=== PATIENT | male | born 1985 | race African-American/Black ===

== ENCOUNTER 2016-06-06 21:39 | Emergency (ER) | payer OTHER ==
[2016-06-06] MEDS ORDERED: NS 0.9% 1000 ML* 2,000 ML IV ONE (22:09)
[2016-06-06 23:22] LABS: Hematocrit 43 % (42-52); Hemoglobin 14.8 g/dl (14.0-18.0); Mean Corpuscular HGB Conc 34 g/dl (31-36); Mean Corpuscular Hemoglobin 32 pg (27-31); Mean Corpuscular Volume 94 fL (80-94); Mean Platelet Volume 9 um3 (7.4-10.4); Red Blood Count 4.63 10^6/ul (4.0-5.4); Red Cell Distribution Width 13 % (10.5-15); White Blood Count 10.7 10^3/ul (3.5-10.8)
[2016-06-06 23:39] LABS: ALT 16 U/L (7-52); Albumin 4.4 g/dL (3.2-5.2); Alkaline Phosphatase 45 U/L (34-104); BUN/Creatinine Ratio 11.5 (8-20); Blood Urea Nitrogen 11 mg/dL (6-24); C Reactive Protein 25.02 mg/L (< 5.00); CO2 Carbon Dioxide 29 mmol/L (22-32); Calcium 9.4 mg/dL (8.6-10.3); Chloride 95 mmol/L (101-111); EGFR African American 116.7 (>60); EGFR Non-African American 90.8 (>60); Glucose 147 mg/dL (70-100); Lipase < 10 U/L (11.0-82.0); Sodium 131 mmol/L (133-145); Total Protein 7.4 g/dL (6.4-8.9)
[2016-06-07] MEDS ORDERED: Ondansetron INJ* 2 MG/ML VIAL IV ONE (00:07)
[2016-06-07] MEDS ORDERED: Ketorolac INJ* 30 MG/ML 1 ML VIAL IV ONE (00:07)
[2016-06-07] MEDS ORDERED: Iohexol 300* (CONTRAST) 10 ML SDV IV ONE (00:29)
[2016-06-07] MEDS ORDERED: NS 0.9% 1000 ML* 1,000 ML IV ONE (01:08)
[2016-06-07 02:23] LABS: Urine Bilirubin Negative (Negative); Urine Glucose Negative (Negative); Urine Nitrite Negative (Negative)
[2016-06-07] MEDS ORDERED: Ondansetron ODT TAB* 4 MG PO ONE (03:35)
--- NOTE | 2016-06-07 03:50 | ED ---
konrad Tijerina Timothy, scribed for Willy Easley MD on 06/07/16 at 0100 . Abdominal Pain/Male - HPI Summary HPI Summary: Mohinder Kaufman is a 31 yo male presenting to [facility] with N/V/D and constant 8/10 RLQ abd pain since 06/06/16 morning. He states the pain has increased throughout the day. He had a normal BM this morning. He only had pineapples for lunch. He vomited at 1430, and states it was red, likely due to the cough medicine he had taken earlier. He states he vomited again after eating. He states the pain is worse with movement. He denies body aches, diarrhea, dysuria. He is in a correctional facility. He has self-medicated with tylenol 650 mg at 1910. He denies any PMHx. - History of Current Complaint Chief Complaint: EDAbdPain Stated Complaint: NAUSEA,VOMITING,DIARRHEA Time Seen by Provider: 06/07/16 00:43 Hx Obtained From: Patient Onset/Duration: Sudden Onset, Lasting Hours, Still Present Timing: Constant Severity Initially: Moderate Severity Currently: Moderate Pain Intensity: 8 Pain Scale Used: 0-10 Numeric Location: Discrete At: RLQ Radiates: No Associated Signs And Symptoms: Positive: Nausea, Vomiting, Diarrhea - Allergies/Home Medications Allergies/Adverse Reactions: Allergies Allergy/AdvReac Type Severity Reaction Status Date / Time No Known Allergies Allergy Verified 06/06/16 23:23 Home Medications: Home Medications Acetaminophen [Tylenol] 325 mg PO Q6H 06/06/16 [History Confirmed 06/06/16] PMH/Surg Hx/FS Hx/Imm Hx Endocrine/Hematology History: Denies: Hx Diabetes Cardiovascular History: Denies: Hx Hypertension History: Denies: Hx Renal Disease Infectious Disease History: No Infectious Disease History: Denies: Traveled Outside the [place] in Last 30 Days - Family History Known Family History: Positive: Hypertension, Diabetes, Other - breast ca Negative: Cardiac Disease - Social History Alcohol Use: None Substance Use Type: Reports: None Smoking Status (MU): Light Every Day Tobacco Smoker Review of Systems Constitutional: Negative Eyes: Negative ENT: Negative Positive: Palpitations Respiratory: Negative Positive: Vomiting, Diarrhea, Nausea Genitourinary: Negative Musculoskeletal: Negative Skin: Negative Neurological: Negative Psychological: Normal All Other Systems Reviewed And Are Negative: Yes Physical Exam Triage Information Reviewed: Yes Vital Signs On Initial Exam: Initial Vitals Temp Pulse Resp BP Pulse Ox 98.4 F 67 18 125/49 98 06/06/16 21:50 06/06/16 21:50 06/06/16 21:50 06/06/16 21:50 06/06/16 21:50 Vital Signs Reviewed: Yes Appearance: Positive: Well-Appearing, No Pain Distress Skin: Positive: Warm, Skin Color Reflects Adequate Perfusion, Dry Head/Face: Positive: Normal Head/Face Inspection Eyes: Positive: EOMI, CHANDLER ENT: Positive: Other - oral mucosa dry Neck: Positive: Supple, Nontender Respiratory/Lung Sounds: Positive: Clear to Auscultation, Breath Sounds Present Cardiovascular: Positive: RRR Abdomen Description: Positive: Soft. Negative: Nontender - Rright mid abdomen tenderness, Other: - rebound Bowel Sounds: Positive: Present Musculoskeletal: Positive: Normal, Strength/ROM Intact Neurological: Positive: Normal, Sensory/Motor Intact, Alert, Oriented to Person Place, Time Psychiatric: Positive: Affect/Mood Appropriate - Lita Coma Scale Coma Scale Total: 15 Diagnostics - Vital Signs Vital Signs Temp Pulse Resp BP Pulse Ox 06/06/16 21:50 98.4 F 67 18 125/49 98 - Laboratory Lab Results: Lab Results 06/06/16 06/06/16 06/06/16 Range/Units 20:40 23:16 23:16 WBC 10.7 (3.5-10.8) 10^3/ul RBC 4.63 (4.0-5.4) 10^6/ul Hgb 14.8 (14.0-18.0) g/dl Hct 43 (42-52) % MCV 94 (80-94) fL MCH 32 H (27-31) pg MCHC 34 (31-36) g/dl RDW 13 (10.5-15) % Plt Count 146 L (150-450) 10^3/ul MPV 9 (7.4-10.4) um3 Neut % (Auto) 88.0 H (38-83) % Lymph % (Auto) 8.4 L (25-47) % Dubois % (Auto) 3.2 (1-9) % Eos % (Auto) 0.1 (0-6) % Baso % (Auto) 0.3 (0-2) % Absolute Neuts (auto) 9.4 H (1.5-7.7) 10^3/ul Absolute Lymphs (auto) 0.9 L (1.0-4.8) 10^3/ul Absolute Monos (auto) 0.3 (0-0.8) 10^3/ul Absolute Eos (auto) 0 (0-0.6) 10^3/ul Absolute Basos (auto) 0 (0-0.2) 10^3/ul Absolute Nucleated RBC 0 10^3/ul Nucleated RBC % 0 INR (Anticoag Therapy) 1.00 (0.89-1.11) APTT 25.4 L (26.0-36.3) seconds Sodium (133-145) mmol/L Potassium Chloride (101-111) mmol/L Carbon Dioxide (22-32) mmol/L Anion Gap BUN (6-24) mg/dL Creatinine (0.67-1.17) mg/dL Est GFR ( Amer) (>60) Est GFR (Non-Af Amer) (>60) BUN/Creatinine Ratio (8-20) Glucose (70-100) mg/dL Lactic Acid (0.5-2.0) mmol/L Calcium (8.6-10.3) mg/dL Total Bilirubin (0.2-1.0) mg/dL AST ALT (7-52) U/L Alkaline Phosphatase (34-104) U/L C-Reactive Protein (< 5.00) mg/L Total Protein (6.4-8.9) g/dL Albumin (3.2-5.2) g/dL Globulin (2-4) g/dL Albumin/Globulin Ratio (1-3) Lipase (11.0-82.0) U/L Urine Color Urine Appearance Urine pH (5-9) Ur Specific Alexander (1.010-1.030) Urine Protein (Negative) Urine Ketones (Negative) Urine Blood (Negative) Urine Nitrate (Negative) Urine Bilirubin (Negative) Urine Urobilinogen (Negative) Ur Leukocyte Esterase (Negative) Urine WBC (Auto) (Absent) Urine RBC (Auto) (Absent) Ur Squamous Epith Cells Present H (Absent) Urine Bacteria (Absent) Urine Yeast (Absent) Urine Glucose (Negative) Urine Ascorbic Acid * H (Negative) 06/06/16 06/06/16 Range/Units 23:16 23:16 WBC (3.5-10.8) 10^3/ul RBC (4.0-5.4) 10^6/ul Hgb (14.0-18.0) g/dl Hct (42-52) % MCV (80-94) fL MCH (27-31) pg MCHC (31-36) g/dl RDW (10.5-15) % Plt Count (150-450) 10^3/ul MPV (7.4-10.4) um3 Neut % (Auto) (38-83) % Lymph % (Auto) (25-47) % Dubois % (Auto) (1-9) % Eos % (Auto) (0-6) % Baso % (Auto) (0-2) % Absolute Neuts (auto) (1.5-7.7) 10^3/ul Absolute Lymphs (auto) (1.0-4.8) 10^3/ul Absolute Monos (auto) (0-0.8) 10^3/ul Absolute Eos (auto) (0-0.6) 10^3/ul Absolute Basos (auto) (0-0.2) 10^3/ul Absolute Nucleated RBC 10^3/ul Nucleated RBC % INR (Anticoag Therapy) (0.89-1.11) APTT (26.0-36.3) seconds Sodium 131 L (133-145) mmol/L Potassium TNP Chloride 95 L (101-111) mmol/L Carbon Dioxide 29 (22-32) mmol/L Anion Gap TNP BUN 11 (6-24) mg/dL Creatinine 0.96 (0.67-1.17) mg/dL Est GFR ( Amer) 116.7 (>60) Est GFR (Non-Af Amer) 90.8 (>60) BUN/Creatinine Ratio 11.5 (8-20) Glucose 147 H (70-100) mg/dL Lactic Acid 1.3 (0.5-2.0) mmol/L Calcium 9.4 (8.6-10.3) mg/dL Total Bilirubin 0.50 (0.2-1.0) mg/dL AST TNP ALT 16 (7-52) U/L Alkaline Phosphatase 45 (34-104) U/L C-Reactive Protein 25.02 H (< 5.00) mg/L Total Protein 7.4 (6.4-8.9) g/dL Albumin 4.4 (3.2-5.2) g/dL Globulin 3.0 (2-4) g/dL Albumin/Globulin Ratio 1.5 (1-3) Lipase < 10 L (11.0-82.0) U/L Urine Color Urine Appearance Urine pH (5-9) Ur Specific Alexander (1.010-1.030) Urine Protein (Negative) Urine Ketones (Negative) Urine Blood (Negative) Urine Nitrate (Negative) Urine Bilirubin (Negative) Urine Urobilinogen (Negative) Ur Leukocyte Esterase (Negative) Urine WBC (Auto) (Absent) Urine RBC (Auto) (Absent) Ur Squamous Epith Cells (Absent) Urine Bacteria (Absent) Urine Yeast (Absent) Urine Glucose (Negative) Urine Ascorbic Acid (Negative) Result Diagrams: 06/06/16 23:16 06/06/16 23:16 Lab Statement: Any lab studies that have been ordered have been reviewed, and results considered in the medical decision making process. - CT A/P CT Interpretation: No Acute Changes - Impression: Nonvisualization of the appendix with suboptimal opacification of the RLQ by oral contrast. Appendicitis cannot be excluded on this exam. Consider delayed imaging in 2-3 hours to allow for complete oral contrast opacification of the RLQ. No localized findings for acute pathology. CT Interpretation Completed By: Radiologist - imaging [facility] A/P 2 CT Interpretation: No Acute Changes - Impression: no findings for appendicitis CT Interpretation Completed By: Radiologist - [facility] Re-Evaluation - Re-Evaluation First Eval Re-Evaluation Time: 02:40 Change: Unchanged Comment: Pt informed of results of CT A/P. Pt is soap drier tender on right abd, CT A /P will be repeated. Second Eval Re-Evaluation Time: 03:23 Change: Unchanged Comment: Pt was informed of negative results of CT A/P. Abdominal Pain Fem Course/Dx - Course Assessment/Plan: Mohinder Kaufman is a 31 yo male presenting to [facility] with N/V/D and RT abd pain since 06/06/[address] A/P showed. After clinical examination, review of his inconclusive CT A/P, review of his second, negative, CT A/P, and review of his lab work, he will be discharged with appropriate instructions. SECOND CT ABD HAD GOOD CONTRAST IN RLQ; NO APPENDIX OR INFLAMMATORY PROCESS IDENTIFIED. PAIN DECREASED IN ED. WORST PAIN MID RT ABD. NO FEVER. DISCUSSED RESULTS WITH PATIENT. PATIENT TO GET RECHECK IF RT ABD PERSISTS OR WORSENENS OR IF DEVELOPS A FEVER. DISCHARGE HOME STABLE. - Diagnoses Provider Diagnoses: Abdominal pain, Nausea & vomiting, Dehydration Discharge - Discharge Plan Condition: Stable Disposition: HOME Patient Education Materials: Dehydration (ED), Acute Nausea and Vomiting (ED), Abdominal Pain (ED) Referrals: Johanna GASTELUM,Lenny Singh [Primary Care Provider] - Additional Instructions: FOLLOW UP WITH YOUR DOCTOR. RETURN TO THE EMERGENCY DEPARTMENT FOR ANY WORSENING OF YOUR CONDITION; PAIN, FEVER, YOU FEEL ILL OR QUESTIONS OR CONCERNS. The documentation as recorded by the konrad kwan Timothy accurately reflects the service I personally performed and the decisions made by me, Willy Easley MD.
[2016-06-07 04:00] VITALS: BP 123/60
--- NOTE | 2016-06-07 07:54 | RAD ---
INDICATION: 31-year-old with right lower quadrant pain COMPARISON: None TECHNIQUE: Axial source images were obtained from the hemidiaphragms to the symphysis pubis following administration of oral and intravenous contrast. 105 mL Omnipaque 300 was utilized. Coronal and sagittal reconstructed images were acquired. Additional delayed imaging of the abdomen and pelvis was obtained approximately 2 1/2 hours following the original scan to allow for better contrast opacification of the colon. Lung bases: The lung bases are clear. Liver: The liver is normal in size. There is a 4 cm lesion in the posterior right hepatic lobe demonstrating nodular peripheral enhancement and partial centripetal filling. This is most consistent with hemangioma. There is no ductal dilatation. Gallbladder: There are no calcified gallstones. There is no evidence of wall thickening or pericholecystic fluid. Spleen: The spleen is normal in size. There are no masses. Pancreas: There is no focal pancreatic mass or ductal dilatation. Adrenal glands: There is no evidence of adrenal mass. Kidneys: The kidneys are normal in size and position. There are prompt nephrograms and there is prompt excretion bilaterally. There are no renal parenchymal masses. There is no evidence of nephrolithiasis. Adenopathy: There is no evidence of adenopathy by size criteria. Fluid collections: There are no free or localized fluid collections. Vessels:There are no significant atherosclerotic changes involving the aorta. There is no focal aneurysm. The iliac vessels are normal in caliber. The IVC appears normal. GI tract: There are no acute CT bowel findings. There is no obstruction. The stomach and small bowel appear normal. The lower GI tract is normal. The cecum, ileocecal valve, and terminal ileum appear normal. The appendix is not visualized. There is no periappendiceal inflammatory change. Delayed image likewise fails to confirm the appendix. If acute appendicitis remains in the differential, the patient should be referred to a surgeon. Pelvic organs: The prostate and seminal vesicles appear normal Bladder: There are no bladder masses. Abdominal and pelvic soft tissues: The extraperitoneal abdominal and pelvic soft tissues appear normal.. Osseous structures: There are no acute osseous findings. Other: None IMPRESSION: NO ACUTE CT FINDINGS. NO MASS OR INFLAMMATORY CHANGE. NONVISUALIZATION OF THE APPENDIX. SUGGEST CLINICAL MANAGEMENT OF ACUTE APPENDICITIS WITH SURGICAL REFERRAL INDICATED
== END 2016-06-07 03:59 | disposition home or self-care (01) ==
LOC: ED 21:39
DX: R10.31 Right lower quadrant pain (principal); E86.0 Dehydration; R11.2 Nausea with vomiting, unspecified; R19.7 Diarrhea, unspecified; F17.210 Nicotine dependence, cigarettes, uncomplicated
CPT/HCPCS: 36415; 74177; 80053; 81003; 81015; 83605; 83690; 85025; 85610; 85730; 86140; 87086; 96374; 96375; 99284; A9270-GY; J1885; J2405; Q9967

== ENCOUNTER 2016-06-07 11:30 | Observation (INO) | payer OTHER ==
[2016-06-07] MEDS ORDERED: NS 0.9% 1000 ML* 1,000 ML IV ONE (12:30)
[2016-06-07] MEDS ORDERED: Ondansetron INJ* 2 MG/ML VIAL IV ONE (12:31)
[2016-06-07] MEDS ORDERED: Ketorolac INJ* 30 MG/ML 1 ML VIAL IV PUSH ONE (12:31)
[2016-06-07 13:47] LABS: Hematocrit 41 % (42-52); Hemoglobin 14.1 g/dl (14.0-18.0); Mean Corpuscular HGB Conc 34 g/dl (31-36); Mean Corpuscular Hemoglobin 32 pg (27-31); Mean Corpuscular Volume 93 fL (80-94); Mean Platelet Volume 9 um3 (7.4-10.4); Red Cell Distribution Width 13 % (10.5-15); White Blood Count 13.1 10^3/ul (3.5-10.8)
--- NOTE | 2016-06-07 14:02 | ED ---
GI/ HPI - HPI Summary HPI Summary: 31M presents with n/v and abdominal pain for a day. Pain is greatest in RLQ. He admits to anorexia. Last meal was at 7pm had some toast which vomited up. Took some zofran this morning. Had 2 CTs last night were unable to see appendix and was d/c home. Last BM was yesterday and was normal. He denies any blood in his urine or stool. He denies any dysuria. - History of Current Complaint Chief Complaint: EDAbdPain Time Seen by Provider: 06/07/16 12:26 Stated Complaint: ABD PAIN Pain Intensity: 7 - Allergy/Home Medications Allergies/Adverse Reactions: Allergies Allergy/AdvReac Type Severity Reaction Status Date / Time No Known Allergies Allergy Verified 06/06/16 23:23 PMH/Surg Hx/FS Hx/Imm Hx Endocrine/Hematology History: Denies: Hx Diabetes Cardiovascular History: Denies: Hx Hypertension History: Denies: Hx Renal Disease - Immunization History Date of Tetanus Vaccine: UTD Date of Influenza Vaccine: none Infectious Disease History: No Infectious Disease History: Denies: Traveled Outside the [place] in Last 30 Days - Family History Known Family History: Positive: Hypertension, Diabetes, Other - breast ca Negative: Cardiac Disease - Social History Alcohol Use: None Substance Use Type: Reports: None Smoking Status (MU): Light Every Day Tobacco Smoker Review of Systems Negative: Fever Negative: Chest Pain Negative: Shortness Of Breath Positive: Abdominal Pain - RLQ, Vomiting, Nausea. Negative: Diarrhea All Other Systems Reviewed And Are Negative: Yes Physical Exam Triage Information Reviewed: Yes Vital Signs On Initial Exam: Initial Vitals Temp Pulse Resp BP Pulse Ox 98.7 F 55 16 135/76 100 06/07/16 11:33 06/07/16 11:33 06/07/16 11:33 06/07/16 11:33 06/07/16 11:33 Vital Signs Reviewed: Yes Appearance: Positive: Pain Distress Skin: Positive: Warm, Dry Head/Face: Positive: Normal Head/Face Inspection Eyes: Positive: Normal, Conjunctiva Clear ENT: Positive: Normal ENT inspection, Pharynx normal Respiratory/Lung Sounds: Positive: Clear to Auscultation, Breath Sounds Present Cardiovascular: Positive: Normal, RRR Abdomen Description: Positive: Soft, Other: - moderate tenderness in RLQ, pos rovsings, mildly diffusely tender across abdomen with greatest in RLQ Bowel Sounds: Positive: Present - Lita Coma Scale Coma Scale Total: 15 Diagnostics - Vital Signs Vital Signs Temp Pulse Resp BP Pulse Ox 06/07/16 11:33 98.7 F 55 16 135/76 100 - Laboratory Lab Results: Lab Results 06/07/16 Range/Units 13:25 WBC 13.1 H (3.5-10.8) 10^3/ul RBC 4.40 (4.0-5.4) 10^6/ul Hgb 14.1 (14.0-18.0) g/dl Hct 41 L (42-52) % MCV 93 (80-94) fL MCH 32 H (27-31) pg MCHC 34 (31-36) g/dl RDW 13 (10.5-15) % Plt Count 143 L (150-450) 10^3/ul MPV 9 (7.4-10.4) um3 Neut % (Auto) 80.6 (38-83) % Lymph % (Auto) 12.1 L (25-47) % Lincoln % (Auto) 7.0 (1-9) % Eos % (Auto) 0 (0-6) % Baso % (Auto) 0.3 (0-2) % Absolute Neuts (auto) 10.5 H (1.5-7.7) 10^3/ul Absolute Lymphs (auto) 1.6 (1.0-4.8) 10^3/ul Absolute Monos (auto) 0.9 H (0-0.8) 10^3/ul Absolute Eos (auto) 0 (0-0.6) 10^3/ul Absolute Basos (auto) 0 (0-0.2) 10^3/ul Absolute Nucleated RBC 0.01 10^3/ul Nucleated RBC % 0.1 Result Diagrams: 06/07/16 13:25 06/07/16 13:25 Lab Statement: Any lab studies that have been ordered have been reviewed, and results considered in the medical decision making process. Re-Evaluation - Re-Evaluation First Eval Re-Evaluation Time: 14:04 Change: Improved Comment: pain improved, mild tenderness in RLQ GIGU Course/Dx - Course Course Of Treatment: 31M presents with worsening abdominal pain in RLQ. Was here this morning and had two CT which unable to see appedix. on exam has generalized tenderness that is greatest in RLQ. pos rovings. got labs and elevated CRP and WBC. called dr cates and will evalulate. dr cates to take to OR to remove appendix - Diagnoses Differential Diagnoses - Male: Appendicitis, Gastroenteritis (Bacterial), Gastroenteritis (Viral) Provider Diagnoses: Acute appendicitis Discharge - Discharge Plan Condition: Stable Disposition: ADMITTED TO [facility]
[2016-06-07 14:05] LABS: ALT 11 U/L (7-52); AST 15 U/L (13-39); Alkaline Phosphatase 42 U/L (34-104); Anion Gap 5 mmol/L (2-11); BUN/Creatinine Ratio 9.1 (8-20); Blood Urea Nitrogen 9 mg/dL (6-24); CO2 Carbon Dioxide 29 mmol/L (22-32); Calcium 8.9 mg/dL (8.6-10.3); Chloride 101 mmol/L (101-111); EGFR African American 112.7 (>60); EGFR Non-African American 87.6 (>60); Globulin 2.7 g/dL (2-4); Glucose 111 mg/dL (70-100); Lipase < 10 U/L (11.0-82.0); Potassium 4.2 mmol/L (3.5-5.0); Sodium 135 mmol/L (133-145); Total Protein 6.7 g/dL (6.4-8.9)
[2016-06-07] MEDS ORDERED: Acetaminophen TAB* 325 MG PO ONE (14:16)
[2016-06-07] MEDS ORDERED: Famotidine IV* 10 MG/ML 2 ML (20 mg) IV ONE (16:31)
[2016-06-07] MEDS ORDERED: Buffered Lidocaine 1% SYRIN* 3 ML/SYR SYRINGE INTRADERM ONE (16:31)
[2016-06-07] MEDS ORDERED: Dexamethasone IV* 4 MG/ML 1 ML (4 MG) IV SLOW PU ONE (16:31)
[2016-06-07] MEDS ORDERED: ceFOXitin 2 GM IVPREMIX* 2 GM/50 ML BAG ONE (16:56)
[2016-06-07] MEDS ORDERED: Bupivacaine 0.25% EPI 200,000* 30 ML SDV ONE (18:28)
[2016-06-07] MEDS ORDERED: Midazolam* 1 MG/ML 2 ML VIAL (2 MG) ONE (18:35)
[2016-06-07] MEDS ORDERED: fentaNYL* 50 MCG/ML 2 ML VIAL (100 MCG VIAL) ONE ×3 (18:35→19:51)
[2016-06-07] MEDS ORDERED: Rocuronium* 10 MG/ML VIAL ONE (18:46)
[2016-06-07] MEDS ORDERED: Ibuprofen TAB* 600 MG PO PRN (18:48)
[2016-06-07] MEDS ORDERED: Acetaminophen TAB* 325 MG PO PRN (18:48)
[2016-06-07] MEDS ORDERED: HYDROmorphone* 1 MG/ML 1 ML SYR IV PRN ×2 (18:48→19:37)
[2016-06-07] MEDS ORDERED: Ondansetron INJ* 2 MG/ML VIAL IV PRN (18:48)
[2016-06-07] MEDS ORDERED: Succinylcholine* 20 MG/ML 10 ML VIAL ONE (19:13)
[2016-06-07] MEDS ORDERED: Ondansetron INJ* 2 MG/ML VIAL ONE (19:13)
[2016-06-07] MEDS ORDERED: Propofol* 10 MG/ML 20 ML BTL IV PUSH ONE (19:13)
[2016-06-07] MEDS ORDERED: Lidocaine 2% PF* 5 ML VIAL ONE (19:13)
[2016-06-07] MEDS ORDERED: Dexamethasone IV* 4 MG/ML 1 ML (4 MG) ONE (19:13)
[2016-06-07] MEDS ORDERED: HYDROmorphone* 1 MG/ML 1 ML SYR ONE (19:51)
[2016-06-07] MEDS: fentaNYL* 50 MCG/ML 2 ML VIAL (100 MCG VIAL) IV PRN ×3 (19:53→20:46)
[2016-06-07] MEDS: oxyCODONE/Acetamin 5/325 MG* TAB PO PRN (22:38)
--- NOTE | 2016-06-07 23:06 | HP ---
CC: Dr. Ruddy Lorenzo; [facility] HISTORY AND PHYSICAL: DATE OF ADMISSION: 06/07/16 CHIEF COMPLAINT: Abdominal pain. HISTORY OF PRESENT ILLNESS: The patient is a 31-year-old male, who is an inmate at the [facility], who comes in with about 24 hours of abdominal pain that started as what he called a stomachache and he points to the central abdomen and overtime it gradually shifted to the right lower quadrant. He was seen last night in the emergency room, had a CT scan which did not show the appendix at all, and he was then sent home but then came back this afternoon. He has had nausea, vomiting, anorexia, and continued abdominal pain, which is more intense in the right lower quadrant. He has not had any diarrhea, fever, chills. No constipation. No trauma or injury. No antecedent illness. PAST MEDICAL HISTORY: Benign. No chronic medical problems. MEDICATIONS: No regular medications. ALLERGIES: He denies medical allergies. FAMILY HISTORY: His family history reveals hypertension and diabetes. No cardiac disease. No bleeding tendencies or anesthesia reactions. SOCIAL HISTORY: He is a resident at [facility]. He is an occasional smoker. He is not using drugs or illicit substances or drinking at the facility.. REVIEW OF SYSTEMS: Multisystem review is benign. No chest pain, heart pain, or angina. No bronchitis, emphysema, or other lung disease. No diabetes, thyroid, or other endocrine. No prior GI or or biliary history. No neuromuscular or psych history. PHYSICAL EXAMINATION GENERAL: He is a well-developed, well-nourished, muscular male, consistent with stated age. VITAL SIGNS: Reveal temperature 98.7, pulse 58, O2 saturation 98%, blood pressure 146/82, respirations are 16 and unlabored. NECK: Supple without any adenopathy. LUNGS: Clear bilaterally. HEART: Regular without any abnormal sounds. ABDOMEN: Muscular, soft, tender in the right lower quadrant with slight guarding. Mild calf tenderness. Mild percussion tenderness. No Rovsing sign. He does have mild referred rebound from left to right as well as focal rebound in the right lower quadrant and no masses or hernias. EXTREMITIES: Well perfused without edema. SKIN: Warm and well perfused. He is not diaphoretic. He is not jaundiced. DIAGNOSTIC STUDIES/LAB DATA: Laboratory studies revealed white blood count of 13,000, which is elevated from 10,000 yesterday. He has a slight elevation of his CRP. His electrolytes are normal. His CT scan as noted above, it showed no evidence of appendicitis, but the appendix was not visualized, so it is a nondiagnostic study. IMPRESSION: A 31-year-old otherwise healthy male with what appears to be acute appendicitis by clinical exam. I have discussed this with him and I recommend laparoscopic appendectomy. I think the CT scan is in essence nondiagnostic and have to rely on clinical scenario and I think his clinical picture is most consistent with acute appendicitis. He understands this situation and agrees to proceed in the fashion outlined and we will proceed with laparoscopic appendectomy this evening. [id number]/[facility] #: [id number] AISSATOU
[2016-06-08] MEDS: oxyCODONE/Acetamin 5/325 MG* TAB PO PRN ×2 (05:13→10:26)
--- NOTE | 2016-06-08 07:58 | OP ---
DATE OF OPERATION: 06/07/16 - ROOM #348 DATE OF : 83 SURGEON: Ruddy Lorenzo MD FIELD SAMPLING TECHNICIAN: None. ANESTHESIOLOGIST: Gabbi Powers MD ANESTHESIA: General anesthetic, local infiltration. PRE-OP DIAGNOSIS: Appendicitis. POST-OP DIAGNOSIS: Appendicitis. OPERATIVE PROCEDURE: Laparoscopic appendectomy. DESCRIPTION OF PROCEDURE: The patient was supine on the operative table. After adequate general anesthetic, compression stockings, Yola Hugger warmer, and intravenous antibiotics; the abdomen was prepped with antiseptic; and draped in a sterile fashion. Local infiltrative anesthesia was administered. A small umbilical incision was created. Blunt port cannula was placed. Insufflation was carried out with carbon dioxide. Additional cannulae; 5 mm left lower quadrant and left mid abdomen were placed through small stab wounds under direct vision. The appendix was inflamed with suppurative changes, was adherent to the sigmoid colon, was pealed off the sigmoid and brought upward. A window was created at the base of the appendix, and the cecum was divided using a 60 mm boswell SARAI stapler, and then the meso-appendix divided using a 45 mm ferrari SARAI stapler. Appendix was placed in a retrieval bag and brought out through the umbilical site. Hemostasis was excellent. Everything was in good condition. There was still undrained collection, cannulae removed. Pneumoperitoneum allowed to escape. Umbilical fascia was closed with 0 Polysorb and skin with 5-0 Polysorb followed by Steri-Strips. He tolerated the procedure well, was awakened, and brought to recovery in good condition. There are no complications. No drains. Pathologic specimen is appendix. Sponge and instrument counts were correct. Estimated blood loss is less than 5 mL. CC: Carlos KINGSLEY* [id number]/[facility] #: [id number] [facility]
[2016-06-08 08:33] VITALS: BP 116/61
--- NOTE | 2016-06-08 09:16 | SURGPN ---
Subjective - Introduction -: [Reports feeling much better this AM. Tolerating clear liquids. Very minimal incisional pain. No N/V, fever or chills. Ready to go home. - Medications -: Active Medications Generic Name Dose Route Start Last Admin Trade Name Freq PRN Reason Stop Dose Admin Acetaminophen 650 mg 06/07/16 18:48 Tylenol Tab* PO Q4H PRN Pain Or Temperature >101 F Hydromorphone HCl 0.5 mg 06/07/16 18:48 Dilaudid Iv* IV Q1H PRN PAIN - SEVERE Lactated Ringer's 1,000 mls @ 125 mls/hr 06/07/16 19:00 06/08/16 08:25 Lactated Ringers 1000 Ml Bag* IV 125 mls/hr .per rate [place] Administration Ibuprofen 600 mg 06/07/16 18:48 Motrin Tab* PO Q8H PRN PAIN Ondansetron HCl 4 mg 06/07/16 18:48 Zofran Inj* IV Q4H PRN NAUSEA/VOMITING Oxycodone/Acetaminophen 1 tab 06/07/16 18:48 06/08/16 05:13 Percocet 5/325 Tab* PO 1 tab Q4H PRN Administration PAIN Objective - Objective -: Awake and alert, appears comfortable, in NAD. - Intake and Output -: Intake & Output 06/06/16 06/07/16 06/08/16 06/09/16 06:59 06:59 06:59 06:59 Intake Total 920 959 Output Total 350 Balance 570 959 Weight 195 lb Intake: IV Fluids 959 LR 959 Oral 920 Output: Urine 350 Other: Estimated Void Medium Surgical Physical Exam - Comments -: Vitals reviewed, afebrile. Abdomen soft, non-tender and non-distended. Incisions clean, dry and intact. Assessment and Plan - Assessment -: A 31 y/o male, s/p laparoscopic appendectomy, doing well, and ready for discharge. - Plan Surgical Plan of Care: Advance Diet, Discontinue IV, Discharge Additional Comments: Will plan on d/c to home. Will f/u with office next week.
--- NOTE | 2016-06-08 11:56 | DS ---
DISCHARGE SUMMARY: DATE OF ADMISSION: 06/07/16 DATE OF DISCHARGE: 06/08/16 ADMISSION DIAGNOSIS: Acute appendicitis. DISCHARGE DIAGNOSIS: Acute appendicitis. ADMITTING PHYSICIAN: Ruddy Lorenzo MD. CONSULTATIONS: None. PROCEDURE: Laparoscopic appendectomy on 06/07/16. BRIEF MEDICAL HISTORY: The patient is a pleasant 31-year-old gentleman who is an inmate at the [facility], who presented to the emergency room with 24 hours' history of worsening abdominal pain. He described it as stomachache that has gotten progressively worse, localized to the central abdomen a nd over time gradually shifted to the right lower quadrant. He was seen the night before in [facility] room and had a CT scan that did not visualize appendix. He was sent home, but came back on t he next day, but now complained of associated nausea, vomiting, and anorexia. Given his ongoing sym ptoms, patient was evaluated and was told to have acute appendicitis for which he was taken to the perating room later that night. HOSPITAL COURSE: The patient was taken to the operating room on the evening of 06/07/16, where he u nderwent a laparoscopic appendectomy that was uneventful. After recovery, patient was awake and stab le and was kept on the surgical floor for observation overnight. He had minimal incisional pain and he was started on clear liquid diet that he tolerated well and was advanced to regular diet on the following morning. He continued to improve. He was afebrile and he was pain free on exam on the day. He will be ready to be discharged back to the [facility] and all the discharge instru ctions were given to him both verbally and in written format. DISCHARGE MEDICATIONS: Include Tylenol or Motrin as needed for pain. PROBLEM LIST: Acute appendici tis, status post laparoscopic appendectomy on 06/07/16. KARAN MAK [id number]/[facility] #: [id number]
== END 2016-06-08 10:50 ==
LOC: ED 11:30 → OR 16:10 → SSU 21:15 → UNDODISOB 06-08 10:50
PROVIDERS: ADMIT Surgery; ATTEND Surgery
DX: K35.80 Unspecified acute appendicitis (principal); F17.210 Nicotine dependence, cigarettes, uncomplicated
CPT/HCPCS: 36415; 80053; 83690; 85025; 86141; 88304; 96374; 96375; 99284; A9270-GY; G0378; J0330; J0694; J1100; J1170; J1885; J2250; J2405; J2704; J3010